=== PATIENT | male | born 1935 | race Caucasian/White ===

== ENCOUNTER 2017-02-14 10:44 | Inpatient (IN) | payer OTHER ==
[~2017-02-14] VITALS: Ht 182.9 cm; Wt 81.6 kg
[~2017-02-14 10:44] MED LIST: ECOTRIN325 MG PO; OMEGA 3 1,0001 EACH PO; OSTEO-BIFLE1 CAPSULE PO; TOPROL XL50 MG PO; VYTORIN 10-401 EACH PO; ZESTRIL,PRINIV2.5 MG PO
[2017-02-14 12:18] LABS: HEMATOCRIT 48.1 % (38.0-50.0); MCHC 33.5 G/DL (30.0-36.0); MCV 89.7 FL (86-99); MEAN PLAT.VOLUME 10.6 uM^3 (9.0-12.4); PLATELET COUNT 241 K/uL (156-360); RBC DIS.WIDTH-CV 13.2 % (11.8-14.6); RBC DIS.WIDTH-SD 43.2 % (39-53); RED BLOOD COUNT 5.36 M/uL (4.00-5.50); WHITE BLOOD COUNT 8.4 K/uL (4.1-10.2)
[2017-02-14 12:34] LABS: CHLORIDE 106 mEq/L (99-109); SODIUM 137 mEq/L (136-147)
[2017-02-14 12:36] LABS: GLUCOSE 101 mg/dL (70-99)
[2017-02-14 12:37] LABS: ANION GAP 6 MEQ/L (2-14)
[2017-02-14 12:39] LABS: GFR ESTIMATE (CALCULATED) > 59 mL/min/
[2017-02-14 12:40] LABS: UREA NITROGEN (BUN) 21 mg/dL (9-23)
[2017-02-14 12:40] LABS: TROP-I INTERPRETATION NEGATIVE; TROPONIN-I 0.01 ng/mL (0.0-0.30)
[2017-02-14] MEDS ORDERED: LOW DOSE ASPIRI81 M1 PO (13:53)
[2017-02-14] MEDS ORDERED: LISINOPRIL10 MG PO (14:03)
[2017-02-14] MEDS ORDERED: OSTEO BI-FLEX1 EAC1 PO (14:03)
[2017-02-14] MEDS ORDERED: TOPROL XL25 MG PO (14:04)
[2017-02-14] MEDS ORDERED: OMEGA 3-6-9 CO1 EACH PO (14:04)
[2017-02-14] MEDS ORDERED: ROSUVASTATIN CA10 MG PO (14:05)
[2017-02-14] MEDS ORDERED: REPATHA SU140 MG/1 M SC (14:05)
[2017-02-14] MEDS ORDERED: SYSTANE 0.3-0.1 EACH RIGHT EYE (14:07)
[2017-02-14 19:32] VITALS: BP 183/86
[2017-02-14 19:51] LABS: TROP-I INTERPRETATION NEGATIVE; TROPONIN-I < 0.01 ng/mL (0.0-0.30)
[2017-02-15 00:30] VITALS: BP 142/78
[2017-02-15 03:24] LABS: HEMATOCRIT 45.8 % (38.0-50.0); MCH 29.7 PG (29.0-34.0); MCHC 33.4 G/DL (30.0-36.0); MCV 88.9 FL (86-99); MEAN PLAT.VOLUME 10.1 uM^3 (9.0-12.4); PLATELET COUNT 219 K/uL (156-360); RBC DIS.WIDTH-CV 13.1 % (11.8-14.6); RBC DIS.WIDTH-SD 42.8 % (39-53); RED BLOOD COUNT 5.15 M/uL (4.00-5.50); WHITE BLOOD COUNT 7.9 K/uL (4.1-10.2)
[2017-02-15 03:35] LABS: CHLORIDE 107 mEq/L (99-109); POTASSIUM 4.3 mEq/L (3.7-5.4); SODIUM 141 mEq/L (136-147)
[2017-02-15 03:37] LABS: GLUCOSE 89 mg/dL (70-99)
[2017-02-15 03:38] LABS: ANION GAP 7 MEQ/L (2-14)
[2017-02-15 03:39] LABS: TOTAL BILIRUBIN 0.9 mg/dL (0.0-1.0)
[2017-02-15 03:41] LABS: ALKALINE PHOSPHATASE 49 IU/L (3-129); GFR ESTIMATE (CALCULATED) 56 mL/min/
[2017-02-15 03:42] LABS: UREA NITROGEN (BUN) 19 mg/dL (9-23)
[2017-02-15 03:47] LABS: TROP-I INTERPRETATION NEGATIVE; TROPONIN-I 0.01 ng/mL (0.0-0.30)
[2017-02-15 04:28] VITALS: BP 158/66
[2017-02-15 07:59] LABS: HDL CHOLESTEROL 37 MG/DL (Desirable>=40); LDL CHOLESTEROL 31 mg/dL (Desirable<100); NON-HDL CHOLESTEROL 49 mg/dL (Desirable<160); TOTAL CHOLESTEROL 86 mg/dL (Desirable<200); TRIGLYCERIDES 90 MG/DL (Normal: <150)
[2017-02-15 08:03] VITALS: BP 134/73
[2017-02-15 11:46] VITALS: BP 134/70
== END 2017-02-15 14:40 | disposition home or self-care (01) | DRG 303 ==
LOC: EME 10:44 → EDOF 14:27 → 5WEST 19:08
PROVIDERS: Internal Medicine
DX: I25.110 Atherosclerotic heart disease of native coronary artery with unstable angina pectoris (principal); I10 Essential (primary) hypertension; E78.5 Hyperlipidemia, unspecified; I25.2 Old myocardial infarction; Z95.1 Presence of aortocoronary bypass graft; G51.0 Bell's palsy; Z86.11 Personal history of tuberculosis; Z79.82 Long term (current) use of aspirin
CPT/HCPCS: 71020; 80048; 80053; 80061; 84484; 85027; 93005; 99281; 99285; J1644

== ENCOUNTER 2018-05-31 09:53 | Emergency (ER) | payer OTHER ==
[~2018-05-31] VITALS: Ht 182.9 cm; Wt 83.4 kg
[~2018-05-31 09:53] MED LIST changes: +LISINOPRIL10 MG PO; +LOW DOSE ASPIRI81 M1 PO; +OMEGA 3-6-9 CO1 EACH PO; +OSTEO BI-FLEX1 EAC1 PO; +REPATHA SU140 MG/1 M SC; +ROSUVASTATIN CA10 MG PO; +SYSTANE 0.3-0.1 EACH RIGHT EYE; +TOPROL XL25 MG PO
[2018-05-31 11:33] LABS: BASOPHIL (%) 0.7 % (0-1); BASOPHIL COUNT 0.1 K/uL (0-0.1); EOSINOPHIL (%) 2.5 % (0-5); EOSINOPHIL COUNT 0.3 K/uL (0-0.3); HEMATOCRIT 45.6 % (38.0-50.0); HEMOGLOBIN 15.8 G/DL (12.5-16.6); IMMATURE GRANULOCYTE (%) 0.3 % (0.0-0.7); LYMPHOCYTE (%) 18.6 % (15-42); LYMPHOCYTE COUNT 1.9 K/uL (1.0-2.8); MCH 31.2 PG (29.0-34.0); MCHC 34.6 G/DL (30.0-36.0); MCV 90.1 FL (86-99); MONOCYTE (%) 10.3 % (3-12); NEUTROPHIL (%) 67.6 % (45-76); NEUTROPHIL COUNT 6.9 K/uL (1.8-6.4); PLATELET COUNT 203 K/uL (156-360); RBC DIS.WIDTH-CV 13.2 % (11.8-14.6); RBC DIS.WIDTH-SD 43.2 % (39-53); RED BLOOD COUNT 5.06 M/uL (4.00-5.50); WHITE BLOOD COUNT 10.1 K/uL (4.1-10.2)
[2018-05-31 11:39] LABS: PTT 28.1 SEC (25-37)
[2018-05-31 11:46] LABS: CHLORIDE 108 mEq/L (99-109); SODIUM 140 mEq/L (136-147)
[2018-05-31 11:48] LABS: GLUCOSE 105 mg/dL (70-99)
[2018-05-31 11:52] LABS: CREATININE 1.2 mg/dL (0.6-1.3); GFR ESTIMATE (CALCULATED) > 59 mL/min/ (58.99-99999); UREA NITROGEN (BUN) 21 mg/dL (9-23)
[2018-05-31 11:53] LABS: TROP-I INTERPRETATION NEGATIVE; TROPONIN-I < 0.01 ng/mL (0.0-0.30)
[2018-05-31 15:17] VITALS: BP 150/78
== END 2018-05-31 15:18 | disposition home or self-care (01) ==
LOC: EME 09:53
PROVIDERS: Emergency Medicine
DX: R00.2 Palpitations (principal); Z95.810 Presence of automatic (implantable) cardiac defibrillator; E78.5 Hyperlipidemia, unspecified; I10 Essential (primary) hypertension; I25.2 Old myocardial infarction; Z95.1 Presence of aortocoronary bypass graft; Z88.8 Allergy status to other drugs, medicaments and biological substances
CPT/HCPCS: 71045; 80048; 84484; 85025; 85610; 85730; 93005; 99281; 99284